=== PATIENT | female | born 1940 | race Caucasian/White ===

== ENCOUNTER → 2017-12-31 | Outpatient (CLI) | payer OTHER ==
[~2017-12-31] MED LIST: ALIGN4 MG PO; ALLOPURINOL 10100 M1 PO; ALTACE10 MG PO; ANTIVERT25 MG PO; ASPIR 8181 MG PO; ATORVASTATIN CA40 MG PO; BENEFIBER1 EAC1 PO; CALCIUM 600 +1 EAC1 PO; CARDIZEM CD120 MG PO; CARDIZEM CD180 MG PO; CHERRY JUICE PO; CLONAZEPAM 0.50.5 M1 PO; COMBIGAN EYE DR10 ML OPHTHALMIC; COUMADIN 2.5MG2.5 M1 PO; COUMADIN 5 MG TA5 M1 PO; DETROL LA2 MG PO; DETROL1 MG PO; DETROL2 M1 PO; IBGARD90 MG PO; KEFLEX500 MG PO; LASIX 40 MG TAB40 M2 PO; LASIX 80 MG TAB80 MG PO; LUMIGAN2.5 M1 OPHTHALMIC; MACROBID 100 M100 M2 PO; OMEPRAZOLE20 M2 PO; OMEPRAZOLE40 MG PO; POTASSIUM20 PO; PRESERVISION A1 EACH PO; RAMIPRIL2.5 MG PO; SORINE 80 MG TA80 M1 PO; TOPROL XL100 MG PO; TRAMADOL 50 MG50 MG PO; VITAMINC500 PO; ZYRTEC10 M5 PO; [UNRECOGNIZED DRUG - CODE] PO
[2017-12-31 14:02] LABS: HEMATOCRIT 43.1 % (37.0-47.0); HEMOGLOBIN 14.3 gm/dL (12.0-15.0); MCH 32.8 pg (26.0-34.0); MCHC 33.1 g/dL (28.0-37.0); MCV 98.9 fL (80.0-100.0); MPV 7.7 fl. (7.2-11.1); RBC 4.36 mil/uL (4.20-5.00); RDW-CV 14.9 % (10.5-14.5); WBC 6.1 thou/uL (4.0-11.0)
[2017-12-31 14:21] LABS: CALCIUM 8.4 mg/dL (8.5-10.1); CREATININE 1.4 mg/dL (0.6-1.3); POTASSIUM 3.9 mmol/L (3.5-5.1)
== END ==
LOC: M.LAB 13:42
PROVIDERS: Podiatrist Foot & Ankle Surgery
DX: M20.12 Hallux valgus (acquired), left foot (principal); R79.89 Other specified abnormal findings of blood chemistry

== ENCOUNTER → 2018-04-08 | Outpatient (CLI) | payer OTHER ==
[2018-04-08 20:34] LABS: ALBUMIN 3.2 g/dL (3.4-5.0); CALCIUM 8.4 mg/dL (8.5-10.1); CREATININE 1.3 mg/dL (0.6-1.3); POTASSIUM 3.6 mmol/L (3.5-5.1); TOTAL BILIRUBIN 0.5 mg/dL (<0.1-1.0); TOTAL PROTEIN 6.7 g/dL (6.4-8.2)
[2018-04-09 02:10] LABS: GLYCOHEMOGLOBIN (HGB A1C) 6.1 % (4.8-5.6)
== END ==
LOC: M.LAB 14:23
PROVIDERS: Internal Medicine
DX: I10 Essential (primary) hypertension (principal); E87.6 Hypokalemia; R73.02 Impaired glucose tolerance (oral); Z79.899 Other long term (current) drug therapy

== ENCOUNTER 2019-01-30 02:20 | Emergency (ER) | payer OTHER ==
[~2019-01-30] VITALS: Ht 160 cm; Wt 101.2 kg
[2019-01-30 02:53] LABS: INR 1.8; PROTIME 18.1 Seconds (9.20-11.50)
[2019-01-30 04:39] VITALS: BP 122/89
== END 2019-01-30 04:39 | disposition home or self-care (01) ==
LOC: M.ERS 02:20
PROVIDERS: Emergency Medicine Emergency Medical Services
DX: S09.8XXA Other specified injuries of head, initial encounter (principal); M25.511 Pain in right shoulder; M25.551 Pain in right hip; I48.91 Unspecified atrial fibrillation; Z96.653 Presence of artificial knee joint, bilateral; Z96.641 Presence of right artificial hip joint; Z90.49 Acquired absence of other specified parts of digestive tract; Z96.611 Presence of right artificial shoulder joint; Z96.612 Presence of left artificial shoulder joint; Z91.048 Other nonmedicinal substance allergy status; Z88.5 Allergy status to narcotic agent; Z88.8 Allergy status to other drugs, medicaments and biological substances; Z88.2 Allergy status to sulfonamides; Y04.0XXA Assault by unarmed brawl or fight, initial encounter; Y93.89 Activity, other specified; Y92.89 Other specified places as the place of occurrence of the external cause; Y99.8 Other external cause status

== ENCOUNTER 2019-03-18 08:23 | Emergency (ER) | payer OTHER ==
[~2019-03-18] VITALS: Ht 167.6 cm; Wt 96.2 kg
[2019-03-18 08:26] VITALS: BP 118/73
[2019-03-18] MEDS ORDERED: OXYBUTYNIN 5 MG5 M2 (08:37)
[2019-03-18 08:44] LABS: ABSOLUTE BASOPHILS 0.1 thou/uL (0.0-0.2); ABSOLUTE EOSINOPHILS 0.3 thou/uL (0.0-0.7); ABSOLUTE LYMPHOCYTES 1.8 thou/uL (0.8-5.3); ABSOLUTE MONOCYTES 0.6 thou/uL (0.0-1.2); ABSOLUTE NEUTROPHILS 3.1 thou/uL (1.6-8.1); BASOPHILS 1.1 %; EOSINOPHILS 5.7 %; HEMATOCRIT 44.4 % (37.0-47.0); HEMOGLOBIN 14.6 gm/dL (12.0-15.0); LYMPHOCYTES 30.5 %; MONOCYTES 9.9 %; MPV 8.7 fl. (7.2-11.1); NUCLEATED RBCS 0 /100WBC; PLATELET COUNT* 210 thou/uL (150-400); POLYS 52.8 %; RBC 4.58 mil/uL (4.20-5.00); RDW-CV 15.1 % (10.5-14.5); WBC 5.8 thou/uL (4.0-11.0)
[2019-03-18 08:50] LABS: ANION GAP 9 mmol/L (7-16); BUN 12 mg/dL (7-18); CALCIUM 8.9 mg/dL (8.5-10.1); CHLORIDE 106 mmol/L (98-107); CO2 26 mmol/L (21-32); CREATININE 1.3 mg/dL (0.6-1.3); GLUCOSE 108 mg/dL (70-99); SODIUM 141 mmol/L (136-145)
[2019-03-18 08:53] LABS: PROTIME 25.3 Seconds (9.20-11.50)
[2019-03-18 09:00] LABS: ALBUMIN 3.5 g/dL (3.4-5.0); ALKALINE PHOSPHATASE 110 U/L (46-116); SGOT 17 U/L (15-37); SGPT 13 U/L (30-65); TOTAL BILIRUBIN 0.5 mg/dL (<0.1-1.0); TOTAL PROTEIN 7.3 g/dL (6.4-8.2); TROPONIN-I LEVEL <0.06 ng/mL (<0.06)
[2019-03-18 09:06] LABS: INR 2.5
--- NOTE | 2019-03-18 10:14 | NUR ---
PT REFUSED MRI. THIS NURSE NOTIFIED DR. LANDEROS
--- NOTE | 2019-03-18 11:36 | EKG ---
[place] [address] ELECTROCARDIOGRAM REPORT Name: BALA SEBASTIAN Room: [place] [address] ADM IN ..#: [id number] Admission: 03/18/19 Attend Phys: Connor Flores Discharge: Date of : 40 Report #: [id number] THIS REPORT FOR: //name// [facility] ED Test Date: 2019-03-18 Test Time: 08:40:03 Pat Name: BALA SEBASTIAN Department: Room: [facility] Gender: F Certified Dietary Manager: Monique SELLERS : 1940 Requested By: Gagan Goncalves Order Number: [id number] MD: Kulwinder Weller Measurements Intervals Challenge Rate: 53 P: 0 PA: 138 QRS: 31 QRSD: 152 T: -30 QT: 471 QTc: 443 Interpretive Statements Sinus rhythm Atrial premature complex Right bundle branch block Compared to ECG 06/07/2017 22:17:14 Atrial premature complex(es) now present Right bundle-branch block now present Atrial flutter no longer present Ventricular premature complex(es) no longer present Intraventricular conduction delay no longer present Myocardial infarct finding no longer present Electronically Signed On 03-18-2019 11:36:49 CDT by Kulwinder Weller [email or web address] <ELECTRONICALLY SIGNED> By: Kulwinder Weller MD, [facility] 03/18/19 1136 9 Kulwinder Weller MD, [facility] /EPI
--- NOTE | 2019-03-18 13:26 | NUR ---
PT BECAME VERY AGGITATED AND AGGRESSIVE TOWARDS FAMILY APPROXIMATELY AT 1230 THIS AFTERNOON. [id number] STATED PT ATTEMPTED TO HIT HER. PT COULD BE HEARD YELLING AT HER FAMILY AT THE NURSES STATION. PT MADE MULTIPLE COMMENTS THAT SHE WAS NOT BEING TAKEN CARE OF AND NO ONE CARED. THIS NURSE ATTEMPTED TO HAND THE PT A TURKEY SANDWICH, THE PT BECAME VERY UPSET AND DEMANDED THAT SHE BE GIVEN A MENU. THE PT APPEARED TO BE VERY CONFUSED. THE PT CONTINUED TO YELL AT THE NURSING STAFF AND PHYSICIAN. PT REFUSED TO BE ADMITTED AND WANTED TO LEAVE. DISCHARGE PAPERWORK WAS PRINTED, PT REFUSED TO SIGN PAPERWORK. PT ATTEMPTED TO HIT SECURITY. PT WAS VERBALLY ABUSIVE TO STAFF AND FAMILY MEMBERS
[2019-03-18 13:31] VITALS: BP 119/66
== END 2019-03-18 13:31 | disposition left against medical advice (07) ==
LOC: M.ERS 08:23 → M.TBA-ER 09:43 → M.ERS 13:31
PROVIDERS: Emergency Medicine Emergency Medical Services
DX: I63.9 Cerebral infarction, unspecified (principal); I48.91 Unspecified atrial fibrillation; Z96.653 Presence of artificial knee joint, bilateral; Z96.641 Presence of right artificial hip joint; Z90.49 Acquired absence of other specified parts of digestive tract; Z88.5 Allergy status to narcotic agent; Z88.2 Allergy status to sulfonamides; Z88.8 Allergy status to other drugs, medicaments and biological substances

== ENCOUNTER 2019-03-26 18:36 | Emergency (ER) | payer OTHER ==
[~2019-03-26] VITALS: Ht 167.6 cm; Wt 83.5 kg
[~2019-03-26 18:36] MED LIST changes: +OXYBUTYNIN 5 MG5 M2
[2019-03-26 20:22] LABS: URINE BILIRUBIN NEGATIVE (Negative); URINE BLOOD NEGATIVE (Negative); URINE COLOR YELLOW; URINE GLUCOSE-RANDOM NEGATIVE (Negative); URINE KETONES NEGATIVE (Negative); URINE NITRITE-REFLEX NEGATIVE (Negative); URINE PROTEIN TRACE (Negative); URINE SPECIFIC GRAVITY 1.015 (1.005-1.030); URINE UROBILINOGEN 0.2 E.U./dl (0.2-1.0)
[2019-03-26 20:24] LABS: URINE CLARITY HAZY; URINE LEUKOCYTES-REFLEX 2+ (Negative)
[2019-03-26 20:33] LABS: SQUAMOUS >10 Many /LPF (0-3)
[2019-03-26 20:34] LABS: CASTS None Seen /LPF (None Seen); CRYSTALS None Seen /LPF (None Seen); MUCUS 4-6 Moderate strn/LPF (None Seen); URINE RBC None Seen /HPF (0-2); URINE WBC-REFLEX 6-15 Few /HPF (0-5)
[2019-03-26] MEDS ORDERED: CEFUROXIME500 MG PO (21:01)
[2019-03-26 21:32] VITALS: BP 152/88
== END 2019-03-26 21:33 | disposition home or self-care (01) ==
LOC: M.ERS 18:36
PROVIDERS: Emergency Medicine
DX: N39.0 Urinary tract infection, site not specified (principal); I48.91 Unspecified atrial fibrillation; Z88.5 Allergy status to narcotic agent; Z91.048 Other nonmedicinal substance allergy status; Z88.8 Allergy status to other drugs, medicaments and biological substances; Z88.2 Allergy status to sulfonamides; Z96.653 Presence of artificial knee joint, bilateral; Z96.641 Presence of right artificial hip joint; Z90.49 Acquired absence of other specified parts of digestive tract; Z96.611 Presence of right artificial shoulder joint; Z96.612 Presence of left artificial shoulder joint

== ENCOUNTER 2019-04-01 11:28 | Emergency (ER) | payer OTHER ==
[~2019-04-01] VITALS: Ht 165.1 cm; Wt 83.5 kg
[~2019-04-01 11:28] MED LIST changes: +CEFUROXIME500 MG PO
[2019-04-01 14:14] VITALS: BP 148/95
== END 2019-04-01 14:12 | disposition home or self-care (01) ==
LOC: M.ERS 11:28
PROVIDERS: Physician Assistant
DX: S62.234A Other nondisplaced fracture of base of first metacarpal bone, right hand, initial encounter for closed fracture (principal); I48.91 Unspecified atrial fibrillation; Z91.048 Other nonmedicinal substance allergy status; Z88.5 Allergy status to narcotic agent; Z88.8 Allergy status to other drugs, medicaments and biological substances; Z96.653 Presence of artificial knee joint, bilateral; Z96.641 Presence of right artificial hip joint; Z90.49 Acquired absence of other specified parts of digestive tract; Y04.0XXA Assault by unarmed brawl or fight, initial encounter; Y93.89 Activity, other specified; Y92.89 Other specified places as the place of occurrence of the external cause; Y99.8 Other external cause status

== ENCOUNTER 2019-04-03 16:54 | Emergency (ER) | payer OTHER ==
[~2019-04-03] VITALS: Ht 167.6 cm; Wt 91.6 kg
[2019-04-03 18:30] LABS: ABSOLUTE BASOPHILS 0.1 thou/uL (0.0-0.2); ABSOLUTE EOSINOPHILS 0.2 thou/uL (0.0-0.7); ABSOLUTE LYMPHOCYTES 1.5 thou/uL (0.8-5.3); ABSOLUTE MONOCYTES 0.6 thou/uL (0.0-1.2); EOSINOPHILS 3.8 %; HEMATOCRIT 44.9 % (37.0-47.0); HEMOGLOBIN 14.8 gm/dL (12.0-15.0); LYMPHOCYTES 23.8 %; MCH 31.8 pg (26.0-34.0); MCHC 32.9 g/dL (28.0-37.0); MCV 96.7 fL (80.0-100.0); MONOCYTES 8.8 %; MPV 7.9 fl. (7.2-11.1); NUCLEATED RBCS 0 /100WBC; PLATELET COUNT* 220 thou/uL (150-400); POLYS 62.6 %; RBC 4.65 mil/uL (4.20-5.00); RDW-CV 15.1 % (10.5-14.5); WBC 6.5 thou/uL (4.0-11.0)
[2019-04-03 18:38] LABS: CALCIUM 9.1 mg/dL (8.5-10.1); CREATININE 1.4 mg/dL (0.6-1.3); POTASSIUM 3.4 mmol/L (3.5-5.1)
[2019-04-03 18:39] LABS: APTT 33.7 Seconds (25.0-31.3); INR 1.8; PROTIME 18.5 Seconds (9.20-11.50)
[2019-04-03 18:42] LABS: URINE BILIRUBIN NEGATIVE (Negative); URINE BLOOD NEGATIVE (Negative); URINE CLARITY CLEAR; URINE COLOR YELLOW; URINE GLUCOSE-RANDOM NEGATIVE (Negative); URINE KETONES NEGATIVE (Negative); URINE LEUKOCYTES-REFLEX NEGATIVE (Negative); URINE NITRITE-REFLEX NEGATIVE (Negative); URINE PROTEIN TRACE (Negative); URINE UROBILINOGEN 0.2 E.U./dl (0.2-1.0)
[2019-04-03 18:43] LABS: ALBUMIN 3.4 g/dL (3.4-5.0); TOTAL BILIRUBIN 0.7 mg/dL (<0.1-1.0)
[2019-04-03 19:45] LABS: AMP/METHAMP Negative (Negative); BARBITURATES Negative (Negative); BENZODIAZEPINES Negative (Negative); COCAINE Negative (Negative); METHADONE Negative (Negative); OPIATES Negative (Negative); PCP Negative (Negative); THC Negative (Negative)
[2019-04-03 19:45] LABS: SALICYLATE < 2.8 mg/dL (2.8-20.0)
[2019-04-03 19:46] LABS: ACETAMINOPHEN < 2 ug/mL (10-30); ALCOHOL < 10 mg/dL (<10)
[2019-04-03 22:48] VITALS: BP 137/82
== END 2019-04-03 22:49 | disposition home or self-care (01) ==
LOC: M.ERS 16:54
PROVIDERS: Family Medicine; Nurse Practitioner Family
DX: S51.802A Unspecified open wound of left forearm, initial encounter (principal); S60.211A Contusion of right wrist, initial encounter; F03.91 Unspecified dementia, unspecified severity, with behavioral disturbance; R45.4 Irritability and anger; I48.91 Unspecified atrial fibrillation; Z91.048 Other nonmedicinal substance allergy status; Z88.5 Allergy status to narcotic agent; Z88.8 Allergy status to other drugs, medicaments and biological substances; Z88.2 Allergy status to sulfonamides; Z96.653 Presence of artificial knee joint, bilateral; Z96.641 Presence of right artificial hip joint; Z90.49 Acquired absence of other specified parts of digestive tract; X50.1XXA Overexertion from prolonged static or awkward postures, initial encounter; Y92.89 Other specified places as the place of occurrence of the external cause; Y93.89 Activity, other specified; Y99.8 Other external cause status